=== PATIENT | male | born 1985 | race Caucasian/White ===

== ENCOUNTER 2016-11-03 14:28 | Emergency (ER) | payer SELFPAY ==
[~2016-11-03] VITALS: Ht 170.2 cm; Wt 72.0 kg
[~2016-11-03 14:28] MED LIST: AMOX1TAB61 PO; HYDR-3144 PO; OXYC-302 PO
[2016-11-03 16:39] LABS: DIFF TOTAL CELLS COUNTED 100 CELL DIFF
[2016-11-03 16:42] LABS: VERIFY COUNTS? YES
[2016-11-03 17:21] LABS: BLOOD UREA NITROGEN 7 mg/dL (7-18)
[2016-11-03 18:11] LABS: ASPARTATE AMINO TRANSFERASE 113 U/L (15-37)
[2016-11-03 19:51] VITALS: BP 126/88
== END 2016-11-03 19:54 | disposition home or self-care (01) ==
LOC: ED 19:30
DX: S40.022A Contusion of left upper arm, initial encounter (principal); E11.65 Type 2 diabetes mellitus with hyperglycemia; X58.XXXA Exposure to other specified factors, initial encounter; Y93.89 Activity, other specified; Y99.8 Other external cause status; Y92.89 Other specified places as the place of occurrence of the external cause
CPT/HCPCS: 36415; 80047; 80053; 85025; 85610

== ENCOUNTER 2018-03-18 19:17 | Emergency (ER) | payer OTHER ==
[~2018-03-18] VITALS: Ht 177.8 cm; Wt 74.6 kg
[~2018-03-18 19:17] MED LIST changes: -HYDR-3144 PO; +HYDR-3245 PO
[2018-03-18 20:46] LABS: BASOPHILS # (AUTO) 0.04 x10^3/uL (0-0.1); BASOPHILS % (AUTO) 1 % (0-1); EOSINOPHILS # (AUTO) 0.08 x10^3/uL (0-0.4); EOSINOPHILS % (AUTO) 1 % (1-7); LYMPHOCYTES # (AUTO) 1.61 x10^3/uL (1-3.4); LYMPHOCYTES % (AUTO) 24 % (22-44); MD NO; MEAN CORPUSCULAR HEMOGLOBIN 31.6 pg (27.5-34.5); MEAN CORPUSCULAR VOLUME 90.2 fL (81-97); MONOCYTES # (AUTO) 0.68 x10^3/uL (0.2-0.8); MONOCYTES % (AUTO) 10 % (2-9); NEUTROPHILS # (AUTO) 4.36 x10^3/uL (1.8-6.8); NEUTROPHILS % (AUTO) 64 % (42-75); PLATELET COUNT 264 x10^3/uL (130-400); RED BLOOD COUNT 5.02 x10^6/uL (4.38-5.82); RED CELL DISTRIBUTION WIDTH 13.1 % (9.4-14.8)
[2018-03-18 20:59] LABS: ALBUMIN 3.8 g/dL (3.4-5.0); ANION GAP 12 mmol/L (5-15); CALCIUM 9.2 mg/dL (8.5-10.1); CHLORIDE 103 mmol/L (98-107); CREATININE 0.83 mg/dL (0.7-1.3)
[2018-03-18] MEDS ORDERED: PROCHLORPERAZINE 10MG TABLET PO STA (21:47)
[2018-03-18] MEDS ORDERED: KETOROLAC 30 MG/1 ML IVPush ONE (22:00)
[2018-03-18] MEDS ORDERED: DIPHENHYDRAMINE 25 MG CAPSULE PO ONE (22:00)
[2018-03-18] MEDS ORDERED: PROCHLORPERAZINE 5 MG/ML, 2ML ONE (22:03)
[2018-03-18] MEDS ORDERED: KETOROLAC 30 MG/1 ML ONE (22:03)
[2018-03-18] MEDS ORDERED: PROCHLORPERAZINE 5 MG/ML, 2ML IVPush ONE (22:30)
[2018-03-18] MEDS ORDERED: DIPHENHYDRAMINE 50 MG/ML, 1ML IVPush ONE ×2 (22:30)
[2018-03-18 22:55] LABS: AMPHETAMINE SCREEN, URINE Positive (Negative); BARBITURATE SCREEN, URINE Negative (Negative); BENZODIAZEPINE SCREEN, URINE Negative (Negative); CANNABINOID SCREEN, URINE Negative (Negative); COCAINE SCREEN, URINE Negative (Negative); METHADONE SCREEN, URINE Negative (Negative); OPIATE SCREEN, URINE Negative (Negative)
[2018-03-18 23:30] VITALS: BP 115/72
== END 2018-03-18 23:40 | disposition home or self-care (01) ==
LOC: ED 20:23
DX: G44.219 Episodic tension-type headache, not intractable (principal); F15.129 Other stimulant abuse with intoxication, unspecified; I10 Essential (primary) hypertension; E11.9 Type 2 diabetes mellitus without complications
CPT/HCPCS: 36415; 80048; 80307; 82040; 85025; 96374; 96375; 99284; J0780; J1200; J1885